=== PATIENT | female | born 1970 | race Caucasian/White ===

== ENCOUNTER 2022-06-27 07:28 | Outpatient (CLI) | payer OTHER, SELFPAY | END 2022-06-27 07:29 | disposition home or self-care (01) | LOC: FRMREF 06-28 10:40 | PROVIDERS: PCP Physician Assistant Medical; Visit Provider Family Medicine | DX: Z01.419 Encounter for gynecological examination (general) (routine) without abnormal findings (principal); E66.01 Morbid (severe) obesity due to excess calories; Z13.1 Encounter for screening for diabetes mellitus; Z13.6 Encounter for screening for cardiovascular disorders | CPT/HCPCS: 80053; 80061; 84443; 86376 ==

== ENCOUNTER 2022-07-01 15:47 | Outpatient (CLI) | payer OTHER, SELFPAY ==
--- NOTE | 2022-07-01 16:00 | CRLHL7_ITS ---
For Patients: As a result of the Century Cures Act, medical imaging exams and procedure reports are released immediately into your electronic medical record. You may view this report before your referring provider. If you have questions, please contact your health care provider. Indication: LUNG NODULE Technique: Noncontrast CT chest Please note that all CT scans at this facility use dose modulation, iterative reconstruction, and/or weight-based dosing when appropriate to reduce radiation dose to as low as reasonably achievable. Comparison: Chest x-ray 04/01/2021 Findings: Smooth fluid attenuation ovoid structure beneath the right hemidiaphragm is similar measuring 2 cm. This is an incidental and benign finding and likely represents a developmental cyst or a small amount of trapped fluid. No pulmonary nodule. No adenopathy. No infiltrate or edema. No effusion or pneumothorax. Osseous structures normal. The remainder of the upper abdomen is normal. Impression: Incidental fluid attenuation nodular structure associated with the right hemidiaphragm, unchanged from the prior study, representing a benign incidental and likely congenital finding. No pulmonary nodule or suspicious findings. Please note that all CT scans at this facility use dose modulation, iterative reconstruction, and/or weight-based dosing when appropriate to reduce radiation dose to as low as reasonably achievable. Dictated by David Dhaliwal MD @ 07/02/2022 12:16:50 PM (Electronically Signed)
== END 2022-07-01 15:48 | disposition home or self-care (01) ==
LOC: CT 15:48
PROVIDERS: PCP Physician Assistant Medical; Visit Provider Family Medicine
DX: R91.1 Solitary pulmonary nodule (principal)
CPT/HCPCS: 71250

== ENCOUNTER 2022-09-04 14:54 | Outpatient (CLI) | payer OTHER, SELFPAY ==
--- NOTE | 2022-09-04 15:20 | CRLHL7_ITS ---
For Patients: As a result of the Century Cures Act, medical imaging exams and procedure reports are released immediately into your electronic medical record. You may view this report before your referring provider. If you have questions, please contact your health care provider. BILATERAL SCREENING MAMMOGRAM WITH COMPUTER-AIDED DETECTION TECHNIQUE: CC and MLO views were obtained. These mammographic images have been obtained using full-field digital technique. These mammographic images were interpreted with the benefit of computer-aided detection. COMPARISON FILM: 10/08/18, 04/07/14. FINDINGS: There are scattered areas of fibroglandular density. IMPRESSION: There is no radiographic evidence for malignancy. ASSESSMENT: BI-RADS Category 1: Negative RECOMMENDATION: Routine screening mammogram in 1 year. A lay language report of this examination will be provided to the patient. David Dhaliwal M.D. Diagnostic Radiologist [email or web address] Transcribed: 1:56 p.m. PT/Dictated by: David Dhaliwal MD @ 09/05/2022 8:49:00 AM (Electronically Signed)
== END 2022-09-04 14:55 | disposition home or self-care (01) ==
LOC: MAMMO 14:54
PROVIDERS: PCP Physician Assistant Medical; Visit Provider Family Medicine
DX: Z12.31 Encounter for screening mammogram for malignant neoplasm of breast (principal)
CPT/HCPCS: 77067

== ENCOUNTER 2024-07-06 10:30 | Outpatient (CLI) | payer OTHER, SELFPAY | END 2024-07-06 10:31 | disposition home or self-care (01) | LOC: FRMREF 10:32 | PROVIDERS: PCP Physician Assistant Medical; Visit Provider Physician Assistant Medical | DX: Z00.00 Encounter for general adult medical examination without abnormal findings (principal); E03.8 Other specified hypothyroidism; Z13.6 Encounter for screening for cardiovascular disorders; Z13.9 Encounter for screening, unspecified | CPT/HCPCS: 80053; 80061; 84443 ==

== ENCOUNTER 2024-07-08 09:05 | Outpatient (CLI) | payer OTHER, SELFPAY ==
[2024-07-13 17:13] LABS: HPV Source Cervical/Vag; HPV, High Risk by TMA Detected
[2024-07-14 17:17] LABS: HPV Genotype 16 by TMA Not Detected; HPV Genotype 18/45 by TMA Not Detected; HPVG Source Cervical/Vag
[2024-07-21 15:54] LABS: Pap Test Reviewed by Path Done
== END 2024-07-08 09:06 | disposition home or self-care (01) ==
PROVIDERS: PCP Physician Assistant Medical; Visit Provider Physician Assistant Medical
DX: Z00.00 Encounter for general adult medical examination without abnormal findings (principal); Z12.4 Encounter for screening for malignant neoplasm of cervix
CPT/HCPCS: 87624; 87625; 88141; 88142

== ENCOUNTER 2024-08-02 13:16 | Outpatient (CLI) | payer OTHER, SELFPAY ==
--- NOTE | 2024-08-02 13:20 | CRLHL7_ITS ---
For Patients: As a result of the Century Cures Act, medical imaging exams and procedure reports are released immediately into your electronic medical record. You may view this report before your referring provider. If you have questions, please contact your health care provider. BILATERAL SCREENING MAMMOGRAM WITH COMPUTER-AIDED DETECTION AND TOMOSYNTHESIS TECHNIQUE: CC and MLO views were obtained. These mammographic images have been obtained using full-field digital technique. These mammographic images were interpreted with the benefit of computer-aided detection. Breast Tomosynthesis was used in this interpretation. COMPARISON FILM: 09/04/22, 08/08/19, 04/07/14. FINDINGS: There are scattered areas of fibroglandular density. IMPRESSION: There is no radiographic evidence for malignancy. ASSESSMENT: BI-RADS Category 1: Negative RECOMMENDATION: Routine screening mammogram in 1 year. A lay language report of this examination will be provided to the patient. David Dhaliwal M.D. Diagnostic Radiologist [email or web address] SP/Dictated by: David Dhaliwal MD @ 08/03/2024 8:42:00 AM (Electronically Signed)
== END 2024-08-02 13:17 | disposition home or self-care (01) ==
LOC: MAMMO 13:17
PROVIDERS: PCP Physician Assistant Medical; Visit Provider Physician Assistant Medical
DX: Z12.31 Encounter for screening mammogram for malignant neoplasm of breast (principal)
CPT/HCPCS: 77063; 77067

== ENCOUNTER 2025-07-13 08:59 | Outpatient (CLI) | payer OTHER, SELFPAY ==
[2025-07-14 22:12] LABS: HPV Source Cervix
[2025-07-18 09:36] LABS: Pap Test Digital Imaging Done
== END 2025-07-13 09:00 | disposition home or self-care (01) ==
PROVIDERS: PCP Physician Assistant Medical; Visit Provider Obstetrics & Gynecology
DX: Z00.00 Encounter for general adult medical examination without abnormal findings (principal); Z12.4 Encounter for screening for malignant neoplasm of cervix
CPT/HCPCS: 84443; 87624; 87625; 88141; 88142; 88175

== ENCOUNTER 2025-08-23 11:13 | Outpatient (CLI) | payer OTHER, SELFPAY ==
--- NOTE | 2025-08-23 11:30 | CRLHL7_ITS ---
For Patients: As a result of the Century Cures Act, medical imaging exams and procedure reports are released immediately into your electronic medical record. You may view this report before your referring provider. If you have questions, please contact your health care provider. INDICATION: BILATERAL SCREENING MAMMOGRAM, ASYMPTOMATIC 55 Y/O FEMALE COMPARISON: 08/02/2024, 09/04/2022, 10/08/2018 TECHNIQUE: Digital mammogram in CC and MLO projections including computer-aided detection (CAD) and tomosynthesis. BREAST COMPOSITION: There are scattered areas of fibroglandular density. FINDINGS: No suspicious findings. ASSESSMENT: BI-RADS 1 Negative RECOMMENDATION: Annual screening mammogram. A lay language report of this examination will be provided to the patient. Dictated by: David Dhaliwal MD @ 08/23/2025 12:11:11 (Electronically Signed)
== END 2025-08-23 11:14 | disposition home or self-care (01) ==
LOC: MAMMO 11:13
PROVIDERS: PCP Physician Assistant Medical; Visit Provider Obstetrics & Gynecology
DX: Z12.31 Encounter for screening mammogram for malignant neoplasm of breast (principal)
CPT/HCPCS: 77063; 77067